=== PATIENT | female | born 1965 | race Caucasian/White ===

== ENCOUNTER 2018-08-14 18:27 | Emergency (ER) | payer MEDICAID ==
[~2018-08-14] VITALS: Ht 154.9 cm; Wt 70.8 kg
[2018-08-14 18:31] VITALS: BP 139/87
--- NOTE | 2018-08-14 18:33 | NUR ---
TO LOBBY WITH VSS. AWATING BED IN ED.
--- NOTE | 2018-08-14 19:36 | NUR ---
PT TAKEN TO BED 9 IN W/C ACCOMPANIED BY FAMILY.
[2018-08-14 19:52] VITALS: BP 139/87
--- NOTE | 2018-08-14 19:52 | NUR ---
53 Y/O F BIB FAMILY WITH C/O R FOOT PAIN S/P FALL DOWN THE STAIRS X2 HOURS AGO. AAOX4. R ANKLE SWOLLEN AND TENDER TO TOUCH. DENIES LOC. 8/10 PAIN. +CMS. PEDAL PULSES PRESENT. DENIES N/V/D. ERMD NOTIFIED. FAMILY AT BEDSIDE WILL CONTINUE TO MONITOR.
--- NOTE | 2018-08-14 20:07 | NUR ---
DR. MENA BEDSIDE EVALUATING PT
[2018-08-14] MEDS ORDERED: HYDROcodone/APAP 5/325 MG 1 TAB TAB PO ONE (21:05)
--- NOTE | 2018-08-14 21:13 | NUR ---
Note jacqui in EDM - 08/14/18 at 2130 by LORA RECEIVED REPORT FROM MOSHE TIJERINA. PT LAYING IN BED, FAMILY AT BEDSIDE. VSS, RR EVEN AND UNLABORED. ALL NEEDS MET AT THIS TIME.
--- NOTE | 2018-08-14 22:00 | NUR ---
Patient discharged with v/s stable. Written and verbal after care instructions given and explained. Patient alert, oriented and verbalized understanding of instructions. Wheel Chair Assisted by medical staff. All questions addressed prior to discharge. ID band removed. Patient advised to follow up with PMD. Rx of Clever given. Patient educated on indication of medication including possible reaction and side effects. Opportunity to ask questions provided and answered.
== END 2018-08-14 22:00 | disposition home or self-care (01) ==
LOC: MED 18:27
DX: S93.401A Sprain of unspecified ligament of right ankle, initial encounter (principal); S93.402A Sprain of unspecified ligament of left ankle, initial encounter; E07.9 Disorder of thyroid, unspecified; Z85.9 Personal history of malignant neoplasm, unspecified; Z86.79 Personal history of other diseases of the circulatory system; W10.9XXA Fall (on) (from) unspecified stairs and steps, initial encounter; Y93.89 Activity, other specified; Y92.89 Other specified places as the place of occurrence of the external cause; Y99.8 Other external cause status
CPT/HCPCS: 73630; 99283

== ENCOUNTER 2018-08-17 17:22 | Emergency (ER) | payer MEDICAID ==
[~2018-08-17] VITALS: Ht 154.9 cm; Wt 70.5 kg
--- NOTE | 2018-08-17 17:56 | NUR ---
PATIENT LEFT WITHOUT BEING SEEN BY DR. ANDRADE. NO FURTHER CARE PROVIDED FOR PATIENT.
== END 2018-08-17 17:56 | disposition left against medical advice (07) ==
LOC: MED 17:22
DX: Z76.0 Encounter for issue of repeat prescription (principal); Z53.21 Procedure and treatment not carried out due to patient leaving prior to being seen by health care provider

== ENCOUNTER 2018-10-30 20:41 | Emergency (ER) | payer MEDICAID ==
[~2018-10-30] VITALS: Ht 154.9 cm; Wt 70.8 kg
[2018-10-30 20:50] VITALS: BP 110/69
--- NOTE | 2018-10-30 20:53 | NUR ---
TO LOBBY A/W BED AMBULATORY
--- NOTE | 2018-10-30 21:43 | NUR ---
PT AMBULATED TO BED 04.
--- NOTE | 2018-10-30 22:00 | NUR ---
53 YO F BIB DAUGHTERS FROM HOME PRESENTS TO ED C/O 10 LYNN THAT STARTED THIS MORNING. PT STATES "MY BACK STARTED HURTING AT THE SAME TIME". DAUGHTER STATES THAT PT WAS TOLD BY HER PMD THAT SHE HAS AN ANEURYSM AND TO GO TO ER IF SHE HAS A SEVERE LYNN. -- PT AWAKE, A/O X 4, CALM, COOPERATIVE. ANSWERING QUESTIONS APPROPRIATELY. BEHAVIOR AGE APPROPRIATE. -- SKIN PINK, WARM, DRY. BREATHING EVEN, UNLABORED. PMH-- BREAST CA, THYROID CA
[2018-10-30] MEDS ORDERED: IBUPROFEN 600 MG TAB PO ONE (22:05)
[2018-10-30] MEDS ORDERED: MORPHINE SULFATE 4 MG/ML SYR IM ONE (22:55)
[2018-10-30] MEDS ORDERED: HYDROcodone/APAP 5/325 MG 1 TAB TAB PO ONE (23:05)
[2018-10-31 00:15] VITALS: BP 131/90
--- NOTE | 2018-10-31 00:15 | NUR ---
Patient discharged with v/s stable. Written and verbal after care instructions given and explained. Patient alert, oriented and verbalized understanding of instructions. Pt states she feels dizzy. Wheel Chair Assisted with to car. All questions addressed prior to discharge. ID band removed. Patient advised to follow up with PMD. Rx of Naproxen given. Patient educated on indication of medication including possible reaction and side effects. Opportunity to ask questions provided and answered.
== END 2018-10-31 00:15 | disposition home or self-care (01) ==
LOC: MED 20:41
DX: R51 Headache (principal); M54.9 Dorsalgia, unspecified; Z98.890 Other specified postprocedural states; Z86.39 Personal history of other endocrine, nutritional and metabolic disease; Z85.9 Personal history of malignant neoplasm, unspecified
CPT/HCPCS: 96372; 99283; J2270